=== PATIENT | female | born 1995 | race Two or more races ===

== ENCOUNTER 2018-10-30 18:02 | Emergency (ER) | payer SELFPAY ==
[~2018-10-30] VITALS: Ht 157.5 cm; Wt 62.0 kg
[2018-10-30 18:07] VITALS: BP 110/73
--- NOTE | 2018-10-30 18:17 | NUR ---
Pt ambulated to room with triage tech.
--- NOTE | 2018-10-30 18:34 | NUR ---
Mel SONG, at bedside to evaluate pt.
--- NOTE | 2018-10-30 18:38 | NUR ---
Lab called for add-on UA to HCG.
[2018-10-30 18:44] LABS: HCG UR SG 1.022 (1.003-1.030)
[2018-10-30 18:49] LABS: MICROSCOPIC NOT IND
[2018-10-30 18:52] LABS: CULTURE INDICATED? NO
--- NOTE | 2018-10-30 19:11 | NUR ---
Patient/Caregiver given discharge instructions and they have confirmed that they understand the instructions. Patient ambulatory with steady gait.
== END 2018-10-30 19:12 | disposition home or self-care (01) ==
LOC: ED 19:02
DX: R10.30 Lower abdominal pain, unspecified (principal); Z32.02 Encounter for pregnancy test, result negative
CPT/HCPCS: 81003; 81025; 99283